=== PATIENT | female | born 1975 | race Caucasian/White ===

== ENCOUNTER 2017-10-08 14:56 | Emergency (ER) | payer MEDICAID ==
[~2017-10-08] VITALS: Ht 170.2 cm; Wt 118.2 kg
[~2017-10-08 14:56] MED LIST: ESCI20TA PO; LEVO100T5 PO; LITH450T PO; LOSA50TA6 PO; OMEP40CA6 PO; TOPI200T6 PO; [UNRECOGNIZED DRUG - OTHER] PO
[2017-10-08] MEDS ORDERED: MAALOX/HYOSCYAMINE/LIDOCAINE 45 ML BTL ONE (15:54)
[2017-10-08] MEDS ORDERED: MAALOX/HYOSCYAMINE/LIDOCAINE 45 ML BTL PO ONE (16:00)
[2017-10-08 16:22] VITALS: BP 132/85
== END 2017-10-08 16:39 | disposition home or self-care (01) ==
LOC: ED 16:16
DX: K21.0 Gastro-esophageal reflux disease with esophagitis (principal); G43.909 Migraine, unspecified, not intractable, without status migrainosus
CPT/HCPCS: 93005